=== PATIENT | male | born 1990 | race Two or more races ===

== ENCOUNTER 2016-07-30 13:06 | Emergency (ER) | payer OTHER ==
[~2016-07-30] VITALS: Ht 180.3 cm; Wt 79.4 kg
--- NOTE | 2016-07-30 13:15 | NUR ---
PT BIB FOR POSSIBLE SIEZURE IN CUSTODY, NO HISTORY OF, HX OF DRUG ABUSE IV. NOTED ANXIOUS. [employer] AT BS. PT AAOX3. SEEN BY MD FOR EVAL. SAFETY AND COMFORT MEASURES PROVIDED. SEIZURE PRECAUTIONS IMPLEMENTED.
[2016-07-30] MEDS ORDERED: LORAZEPAM INJ 2 MG/ML VIAL IV ONE (13:30)
--- NOTE | 2016-07-30 13:30 | NUR ---
PULLER OUT AT FOR BLOOD DRAW. IV ACCESS STARTED.
[2016-07-30 13:37] LABS: BASOPHILS # (AUTO) 0.1 /CMM (0.0-0.2); BASOPHILS % (AUTO) 0.7 % (0.0-2.0); EOSINOPHILS # (AUTO) 0.1 /CMM (0.0-0.7); EOSINOPHILS % (AUTO) 1.2 % (0.0-6.0); HEMATOCRIT 48 % (39-51); HEMOGLOBIN 16.5 g/dL (13.5-17.5); LYMPHOCYTES # (AUTO) 2.4 /CMM (0.8-4.8); LYMPHOCYTES % (AUTO) 22.8 % (20.0-44.0); MEAN CORPUSCULAR HEMOGLOBIN 28 PG (26.0-33.0); MEAN CORPUSCULAR HGB CONC 34 g/dl (31.0-36.0); MEAN CORPUSCULAR VOLUME 83 fL (80-96); MONOCYTES % (AUTO) 9.4 % (2.0-12.0); NEUTROPHILS # (AUTO) 6.9 /CMM (1.8-8.9); NEUTROPHILS % (AUTO) 65.9 % (43.0-81.0); PLATELET COUNT (AUTO) 316 /CMM (150-450); RDW COEFFICIENT OF VARIATION 13.8 (11.5-15.0); RED BLOOD CELL COUNT(AUTO) 5.85 MIL/uL (4.5-6.0); WHITE BLOOD COUNT (AUTO) 10.5 K/uL (4.3-11.0)
[2016-07-30] MEDS ORDERED: LORAZEPAM INJ 2 MG/ML VIAL ONE (13:37)
--- NOTE | 2016-07-30 13:46 | NUR ---
PT MEDICATED ORDERED.
[2016-07-30 13:47] LABS: CALCIUM, SERUM 9.3 mg/dL (8.5-10.1); POTASSIUM 4.1 mmol/L (3.5-5.1)
[2016-07-30 14:01] VITALS: BP 121/61
--- NOTE | 2016-07-30 14:01 | NUR ---
Patient discharged to home in stable condition. Written and verbal after care instructions given. Patient verbalizes understanding of instruction.
== END 2016-07-30 14:11 ==
LOC: ER 13:07
DX: R56.9 Unspecified convulsions (principal); F19.10 Other psychoactive substance abuse, uncomplicated; F10.10 Alcohol abuse, uncomplicated
CPT/HCPCS: 36415; 70450-TC; 80048-TC; 85025-TC; A4606; J2060; Z7610

== ENCOUNTER 2017-06-04 19:21 | Emergency (ER) | payer OTHER ==
[~2017-06-04] VITALS: Ht 185.4 cm; Wt 77.1 kg
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
--- NOTE | 2017-06-04 20:02 | NUR ---
PT LEFT FOR CT VIA GURNEY WITH [employer]
--- NOTE | 2017-06-04 20:09 | NUR ---
PT RETURNED FROM CT.
[2017-06-04 21:29] VITALS: BP 138/89
--- NOTE | 2017-06-04 21:30 | NUR ---
PT CITED AND RELEASED BY [employer]. Patient discharged to home in stable condition. Written and verbal after care instructions given. Patient verbalizes understanding of instruction. PT AMBULATED OUT WITH A STEADY GAIT. VSS.
== END 2017-06-04 21:31 | disposition home or self-care (01) ==
LOC: ER 19:23
DX: S09.8XXA Other specified injuries of head, initial encounter (principal); F19.10 Other psychoactive substance abuse, uncomplicated; X58.XXXA Exposure to other specified factors, initial encounter; Y93.89 Activity, other specified; Y92.89 Other specified places as the place of occurrence of the external cause; Y99.8 Other external cause status
CPT/HCPCS: 70450; 99284; A4606; Z7610